=== PATIENT | female | born 1970 | race Caucasian/White ===

== ENCOUNTER 2019-04-23 11:58 | Emergency (ER) | payer OTHER ==
[~2019-04-23] VITALS: Ht 170.2 cm; Wt 147.4 kg
[2019-04-23] MEDS ORDERED: MUPIROCIN22 GM (12:15)
[2019-04-23] MEDS ORDERED: PAXIL40 MG PO (12:15)
[2019-04-23] MEDS ORDERED: HYDROCHLOROTHIA25 M2 PO (12:15)
[2019-04-23] MEDS ORDERED: NORCO 5-325 TA1 EAC1 PO (12:54)
[2019-04-23] MEDS ORDERED: PREDNISONE 10 M10 MG PO (12:54)
[2019-04-23] MEDS ORDERED: MOBIC7.5 MG PO (12:54)
[2019-04-23 13:05] VITALS: BP 169/94
== END 2019-04-23 13:06 | disposition home or self-care (01) ==
LOC: M.ERS 11:58
DX: M54.41 Lumbago with sciatica, right side (principal); M54.42 Lumbago with sciatica, left side; I10 Essential (primary) hypertension; F32.9 Major depressive disorder, single episode, unspecified; E66.01 Morbid (severe) obesity due to excess calories; Z88.1 Allergy status to other antibiotic agents; Z88.8 Allergy status to other drugs, medicaments and biological substances; Z68.43 Body mass index [BMI] 50.0-59.9, adult